=== PATIENT | male | born 1970 ===

== ENCOUNTER 2019-05-04 21:31 | Observation (INO) ==
[2019-05-04] MEDS ORDERED: 0.9 % Sodium Chloride 1,000 ML IVC ONE (21:48)
[2019-05-04] MEDS ORDERED: Ondansetron 4 MG/2 ML VIAL IVP ONE (22:01)
[2019-05-04 22:07] LABS: Basophils # 0.1 K/mcL (0.0-0.2); Basophils % 0.6 %; Eosinophils # 0.2 K/mcL (0.0-0.6); Eosinophils % 2.7 %; Hematocrit 48.9 % (37.5-50.1); Immature Granulocytes % 0.2 % (0-4); Lymphocytes # 3.6 K/mcL (0.6-4.6); Lymphocytes % 41.8 %; Mean Corpuscular HGB Conc 34.8 g/dL (31.6-35.5); Mean Corpuscular Hemoglobin 28.2 pg (28.0-33.3); Mean Corpuscular Volume 81.1 fL (83.0-100.0); Mean Platelet Volume 11.2 fL (9.4-12.4); Monocytes # 0.7 K/mcL (0.0-1.3); Monocytes % 8.4 %; Platelet Count 225 K/mcL (140-400); Red Blood Count 6.03 M/mcL (4.19-5.50); Red Cell Distribution Width 13.4 % (11.5-14.5); Segmented Neutrophils % 46.3 %; White Blood Count 8.6 K/mcL (4.3-11.1)
[2019-05-04 22:29] LABS: Alanine Aminotransferase 26 Units/L (7-52); Albumin 4.5 g/dL (3.5-5.7); Albumin/Globulin Ratio 1.6 (1.1-2.2); Alkaline Phosphatase 76 Units/L (34-104); Aspartate Amino Transferase 18 Units/L (13-39); BUN/Creatinine Ratio 15 (6-26); Bilirubin,Total 0.4 mg/dL (0.3-1.0); Blood Urea Nitrogen 14 mg/dL (6-20); Calcium 9.2 mg/dL (8.6-10.3); Carbon Dioxide 23 mEq/L (23-29); Chloride 105 mEq/L (98-107); Globulin 2.8 g/dL (2.4-3.5); Glucose 162 mg/dL (70-105); Osmolality,Calculated 292 (280-300); Potassium 3.4 mEq/L (3.5-5.1); Sodium 139 mEq/L (136-145); Total Protein 7.3 g/dL (6.4-8.9); Troponin I < 0.03 ng/mL (< 0.04); eGFR For African Americans > 60 (> 60); eGFR For Non-African Americans > 60 (> 60)
[2019-05-04 22:42] LABS: Thyroid Stimulating Hormone 3.367 mcIU/mL (0.340-5.600)
[2019-05-04 23:22] LABS: Bilirubin,Urine Negative (Negative); Blood,Urine Negative (Negative); Clarity,Urine Clear (Clear); Color,Urine Yellow (Yellow); Glucose,Urine (UA) Normal (Normal); Ketones,Urine Negative (Negative); Leukocyte Esterase,Urine Negative (Negative); Nitrite,Urine Negative (Negative); Protein,Urine Negative (Neg-Trace); Urobilinogen,Urine Normal (Normal)
[2019-05-04 23:32] LABS: Amphetamine Screen,Urine Negative ng/mL (Cutoff=1000); Barbiturate Screen,Urine Negative ng/mL (Cutoff=200); Benzodiazepines Screen,Urine Negative ng/mL (Cutoff=200); Cannabinoid Screen,Urine Negative ng/mL (Cutoff = 50); Cocaine Screen,Urine Negative ng/mL (Cutoff= 300); Opiate Screen,Urine Negative ng/mL (Cutoff=300); Phencyclidine Screen,Urine Negative ng/mL (Cutoff=25)
[2019-05-05] MEDS ORDERED: Naloxone 0.4 MG/ML INJ IVP PRN (05:41)
[2019-05-05 06:26] LABS: Hematocrit 49.4 % (37.5-50.1); Hemoglobin 16.7 g/dL (12.9-16.9); Mean Corpuscular HGB Conc 33.8 g/dL (31.6-35.5); Mean Corpuscular Hemoglobin 27.7 pg (28.0-33.3); Mean Corpuscular Volume 82.1 fL (83.0-100.0); Platelet Count 222 K/mcL (140-400); Red Blood Count 6.02 M/mcL (4.19-5.50); Red Cell Distribution Width 13.4 % (11.5-14.5); White Blood Count 7.7 K/mcL (4.3-11.1)
[2019-05-05 06:49] LABS: Chol/HDL Ratio 4.8 (0-4.9); Magnesium 2.2 mg/dL (1.6-2.6); Phosphorous 2.9 mg/dL (2.7-4.5)
[2019-05-05] MEDS: 0.9 % Sodium Chloride 1,000 ML IVC SCH ×2 (07:12→15:37)
[2019-05-05] MEDS: *HR* Heparin 5,000 UNIT/ML VIAL SQ SCH ×3 (07:13→17:35)
[2019-05-05 07:23] LABS: BUN/Creatinine Ratio 15 (6-26); Blood Urea Nitrogen 12 mg/dL (6-20); Calcium 8.7 mg/dL (8.6-10.3); Carbon Dioxide 25 mEq/L (23-29); Chloride 106 mEq/L (98-107); Glucose 122 mg/dL (70-105); Osmolality,Calculated 293 (280-300); Potassium 4.2 mEq/L (3.5-5.1); Sodium 141 mEq/L (136-145); eGFR For African Americans > 60 (> 60); eGFR For Non-African Americans > 60 (> 60)
[2019-05-05 08:35] LABS: Estimated Average Glucose 131 mg/dl
[2019-05-05] MEDS: Aspirin 81 MG TAB.CHEW PO SCH (12:42)
[2019-05-05] MEDS: Diltiazem CD (24hr) 120 MG CAPSULE PO SCH (13:31)
[2019-05-06] MEDS: *HR* Heparin 5,000 UNIT/ML VIAL SQ SCH (04:58)
[2019-05-06 07:01] VITALS: BP 144/83
[2019-05-06] MEDS: Aspirin 81 MG TAB.CHEW PO SCH (09:29)
[2019-05-06] MEDS: Diltiazem CD (24hr) 120 MG CAPSULE PO SCH (09:30)
== END 2019-05-06 11:08 | disposition home or self-care (01) ==
LOC: EMEROOARM 21:31 → CDU 21:31 → SUATTDRO 05-05 01:17 → CDU 05-05 01:30 → 3BNU 05-05 16:58
PROVIDERS: ADMIT Family Medicine; ATTEND Internal Medicine